=== PATIENT | female | born 1990 | race Caucasian/White ===

== ENCOUNTER 2017-08-16 17:38 | Inpatient (IN) | payer OTHER ==
[~2017-08-16] VITALS: Ht 157.5 cm; Wt 68.7 kg
[2017-08-16 17:43] VITALS: BP 132/71; PULSE 84; RESP 20; TEMP 98.7; O2SAT 100
--- NOTE | 2017-08-16 17:59 | PD ---
HPI Chief Complaint: Psychiatric Symptoms Time Seen by Provider: 17:58 Travel History International Travel<30 days: No Contact w/Intl Traveler<30days: No Traveled to known affect area: No History of Present Illness HPI 26-year-old female presents emergency department with her family with reports of suicidal ideation, with a specific plan. Patient states she suffered from depression and thoughts of suicide since she was 12 years old. Patient states she has a psychiatrist, but was unable to make that appointment due to recent bronchitis illness. She was recently given azithromycin for bronchitis yesterday by her primary. Patient states in the last 2 days she has had worsening suicidal ideation with thoughts of either using a gun or running her car into a pole. Patient denies other significant acute medical issues other than the bronchitis which she is being treated for. She denies . She has no children. 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 She has no significant pain. She is currently voluntary with family. She has no known drug allergies. PFSH Past Medical History ?: Not Social History Alcohol Use: No Tobacco Use: No Substance Use: No Allergies-Medications (Allergen,Severity, Reaction): Coded Allergies: No Known Allergies (Unverified , 08/16/17) Review of Systems Except as stated in HPI: all other systems reviewed are Neg General / Constitutional: No: Fever Eyes: No: Visual changes HENT: No: Headaches Cardiovascular: No: Chest Pain or Discomfort Respiratory: No: Shortness of Breath Gastrointestinal: No: Abdominal Pain Genitourinary: No: Dysuria Musculoskeletal: No: Pain Skin: No Rash Neurologic: No: Weakness Psychiatric: Positive: Anxiety, Depression, Suicidal Ideations, No: Substance Abuse, Homicidal Ideation Endocrine: No: Polydipsia Hematologic/Lymphatic: No: Easy Bruising Physical Exam Narrative GENERAL: Patient appears sad and somewhat anxious but otherwise in no acute distress. SKIN: Warm and dry. Normal color. Normal turgor. No signs of trauma. No cutting HEAD: Atraumatic. Normocephalic. EYES: Pupils equal and round. No scleral icterus. No injection or drainage. ENT: No nasal bleeding or discharge. Mucous membranes pink and moist. Pharynx is clear. Airways patent NECK: Trachea midline. Supple nontender. CARDIOVASCULAR: Regular rate and rhythm. RESPIRATORY: No accessory muscle use. Clear to auscultation. Breath sounds equal bilaterally. GASTROINTESTINAL: Abdomen soft, non-tender, nondistended. Hepatic and splenic margins not palpable. MUSCULOSKELETAL: Extremities without clubbing, cyanosis, or edema. No obvious deformities. NEUROLOGICAL: Awake and alert. No obvious cranial nerve deficits. Motor grossly within normal limits. Five out of 5 muscle strength in the arms and legs. Normal speech. PSYCHIATRIC: Appropriate mood and affect; insight and judgment normal. Patient admits to active suicidal ideation. Data Data Last Documented VS Vital Signs Date Time Temp Pulse Resp B/P (MAP) Pulse Ox O2 Delivery O2 Flow Rate FiO2 08/16/17 17:43 98.7 84 20 132/71 (91) 100 Orders Orders Complete Blood Count With Diff (08/16/17 18:07) Comprehensive Metabolic Panel (08/16/17 18:07) Thyroid Stimulating Hormone (08/16/17 18:07) Urinalysis - C+S If Indicated (08/16/17 18:07) Ed Urine Pregnancytest Poc (08/16/17 18:07) Psych Screen (08/16/17 18:07) Drug Screen, Random Urine (08/16/17 18:07) Alcohol (Ethanol) (08/16/17 18:07) MDM Medical Decision Making Medical Screen Exam Complete: Yes Emergency Medical Condition: Yes Differential Diagnosis Anxiety. Depression. Suicidal ideation. Narrative Course Psychiatric labs ordered per protocol. Psych screen is ordered. I informed the patient that she is currently voluntary but if she attempted to leave, she would be mcege acted. Patient is medically cleared for psychiatric evaluation. Condition: Stable Eloy Lobo Aug 16, 2017 17:59
[2017-08-16] MEDS ORDERED: CLON0.5T PO (18:15)
[2017-08-16] MEDS ORDERED: VENL37.5 PO (18:15)
[2017-08-16 18:47] LABS: AUTOMATED NEUTROPHIL # 1.6 TH/MM3 (1.8-7.7); BACTERIA, URINE OCC /hpf; BASOPHIL % 0.7 % (0.0-2.0); BILIRUBIN, URINE NEG (NEG); BLOOD, URINE NEG (NEG); EOSINOPHIL # 0.1 TH/MM3 (0-0.4); EOSINOPHIL % 1.7 % (0.0-4.0); GLUCOSE,URINE NEG (NEG); HEMATOCRIT 36.6 % (35.0-46.0); HEMOGLOBIN 12.3 GM/DL (11.6-15.3); KETONE, URINE NEG (NEG); LYMPH % 59.4 % (9.0-44.0); LYMPHOCYTE # 3.5 TH/MM3 (1.0-4.8); MEAN CELL VOLUME 80.8 FL (80.0-100.0); MEAN CORPUSCULAR HEMOGLOBIN 27.1 PG (27.0-34.0); MEAN CORPUSCULAR HGB CONC 33.5 % (32.0-36.0); MEAN PLATELET VOLUME 7.8 FL (7.0-11.0); MONO % 11.7 % (0.0-8.0); MONOCYTE # 0.7 TH/MM3 (0-0.9); NEUT % 26.5 % (16.0-70.0); NITRITE,URINE NEG (NEG); PH, URINE 6.5 (5.0-8.5); PLATELET COUNT 227 TH/MM3 (150-450); RED BLOOD COUNT 4.53 MIL/MM3 (4.00-5.30); RED CELL DISTRIBUTION WIDTH 13.3 % (11.6-17.2); SQUAMOUS EPITHELIAL CELL URINE 1 /hpf (0-5); URINE COLOR COLORLESS (YELLW/STRAW); URINE LEUKOCYTE ESTERASE NEG (NEG); WHITE BLOOD COUNT 5.9 TH/MM3 (4.0-11.0)
[2017-08-16 18:58] LABS: ALT (GPT) 99 U/L (10-53)
[2017-08-16 18:59] LABS: ALBUMIN 3.1 GM/DL (3.4-5.0); AST (GOT) 73 U/L (15-37); BICARBONATE 25.3 MEQ/L (21.0-32.0); BLOOD UREA NITROGEN 3 MG/DL (7-18); CALCIUM 8.4 MG/DL (8.5-10.1); CHLORIDE 111 MEQ/L (98-107); CREATININE 0.69 MG/DL (0.50-1.00); GLOMERULAR FILTRATION RATE 103 ML/MIN (>89); GLUCOSE,RANDOM 88 MG/DL (74-106); SODIUM (NA) 142 MEQ/L (136-145)
[2017-08-16 19:08] LABS: ALKALINE PHOSPHATASE 78 U/L (45-117); TOTAL BILIRUBIN ADULT 0.2 MG/DL (0.2-1.0); TOTAL PROTEIN 7.1 GM/DL (6.4-8.2)
[2017-08-16 19:23] LABS: BANDS 6 % (0-6); BASOPHILS 1 % (0-2); LYMPHOCYTES 45 % (9-44); MONOCYTES 14 % (0-8); NEUTROPHIL # MANUAL DIFF 2.2 TH/MM3 (1.8-7.7); PLASMA CELLS 1 % (0-0); POLYS (SEG NEUTROPHILS) 31 % (16-70)
[2017-08-16 22:00] VITALS: BP 126/78; PULSE 78; RESP 16; O2SAT 100
[2017-08-16] MEDS ORDERED: LORazepam 1 MG TAB PO ONE (22:30)
[2017-08-16] MEDS ORDERED: MAGNESIUM HYDROXIDE SUSP 30 ML CUP PO PRN (23:45)
[2017-08-16] MEDS ORDERED: NICOTINE 21 MG/24 HR PATCH T-DERMAL PRN (23:45)
[2017-08-16] MEDS ORDERED: ALUMINUM/MAGNESIUM/SIMETH 30 ML CUP PO PRN (23:45)
[2017-08-16] MEDS ORDERED: ACETAMINOPHEN 325 MG TAB PO PRN (23:45)
[2017-08-17 00:45] VITALS: BP 117/68; PULSE 80; RESP 16; TEMP 97.9; O2SAT 99
[2017-08-17 05:20] VITALS: BP 119/64; PULSE 76; RESP 18; TEMP 98.4
[2017-08-17 08:16] LABS: ALBUMIN 2.8 GM/DL (3.4-5.0); ALT (GPT) 88 U/L (10-53); AST (GOT) 59 U/L (15-37); BLOOD UREA NITROGEN 7 MG/DL (7-18); CALCIUM 7.8 MG/DL (8.5-10.1); CHLORIDE 110 MEQ/L (98-107); CHOLESTEROL 117 MG/DL (120-200); CREATININE 0.65 MG/DL (0.50-1.00); GLOMERULAR FILTRATION RATE 110 ML/MIN (>89); GLUCOSE,RANDOM 93 MG/DL (74-106); SODIUM (NA) 145 MEQ/L (136-145); TRIGLYCERIDES 121 MG/DL (42-150)
[2017-08-17 08:17] LABS: ALKALINE PHOSPHATASE 69 U/L (45-117); CHOLESTEROL/ HDL RATIO 4.93 RATIO; HDL CHOLESTEROL 23.7 MG/DL (40.0-60.0); LDL CHOLESTEROL 69 MG/DL (0-99); TOTAL BILIRUBIN ADULT 0.2 MG/DL (0.2-1.0); TOTAL PROTEIN 6.5 GM/DL (6.4-8.2)
--- NOTE | 2017-08-17 11:58 | HHI.HP ---
Provisional Diagnosis Admission Date Aug 16, 2017 at 23:45 [place] I. 1. Adjustment disorder with depressed mood [place] II. Deferred Certification of Person's Competence To Provide Express and Informed Consent I have personally examined Katrina Townsend , a person being served at [facility] on, Aug 17, 2017 11:47. Express and informed consent means consent voluntarily given in writing, by a competent person, after sufficient explanation and disclosure of the subject matter involved to enable the person to make a knowing and willful decision without any element of force, fraud, deceit, duress, or other form of constraint or coercion. This person is 18 years of age or older, is not now known to be incompetent to consent to treatment with a guardian advocate, and does not have a health care surrogate or proxy currently making medical treatment decisions. I have found this person to be one of the following: [x] Competent to provide express and informed consent, as defined above, for voluntary admission to this facility and is competent to provide express and informed consent for treatment. He/she has the consistent capacity to make well reasoned, willful, and knowing decisions concerning his or her medical or mental health treatment. The person fully and consistently understands the purpose of the admission for examination/placement and is fully capable of personally exercising all rights [place] Incompetent to provide express and informed consent to voluntary admission, and this is incompetent to provide express and informed consent to treatment. The person must be transferred to involuntary status and a petition for a guardian advocate filed with the Circuit Court. [] Refusing to provide express and informed consent to voluntary admission but is competent to provide express and informed consent for treatment. The person must be discharged or transferred to involuntary status. Form shall be completed within 24 hours of a person's arrival at the receiving facility and filed in the clinical record of each person: 1. Admitted on a voluntary basis 2. Permitted to provide express and informed consent to his/her own treatment 3. Allowed to transfer from involuntary to voluntary status 4. Prior to permitting a person to consent to his or her own treatment after having been previously found incompetent to consent to treatment. History of Present Illness Capacity: Has Capacity Psych Chief Complaint: Depression HPI Ms. Townsend is a 26-year-old female with a reported history of generalized anxiety disorder and depression who presents voluntarily for psychiatric evaluation. Patient told the ED provider "in the last 2 days she has had worsening suicidal ideation with thoughts of either using a gun or running her car into a pole." Reviewing the electronic medical record, it appears this is patient's first visit to [place]. Patient seen and examined with nurse and counselor. Chart reviewed. Case discussed with nursing staff. No behavioral issues noted overnight. No evidence of suicidality or homicidality while the patient has been under observation on the inpatient unit. Case discussed with counselor who has obtained collateral information from the patient's . reportedly has no safety concerns about the patient returning home today, and counselor confirms that firearm has been secured. On my examination today, the patient reports that she is feeling back to her normal self and is requesting discharge from the inpatient psychiatric unit today. She says that she has been feeling somewhat more depressed over the last 3 months secondary to marital stress and she also notes that she has not been taking her Effexor for the last week or so secondary to respiratory illness. She reports that she had some thoughts of self-harm in the last few days with plan as noted above, but this has resolved. She denies any suicidal or homicidal ideation, intent or plan on direct questioning and contracts for safety. Mood is improved versus initial presentation, and I can elicit no depressive or hypomanic/manic symptoms at this time. She does report some generalized anxiety symptoms including poor sleep and muscle tension. She denies any audiovisual hallucinations. I can elicit no delusional beliefs. The remainder of the psychiatric ROS is negative. No acute physical complaints. Past psychiatric history: The patient reports a history of generalized anxiety disorder and depression. She follows with an outpatient provider by the name of Poornima at [facility]. She also has a therapist whom she sees approximately weekly. She denies a history of psychiatric admissions or suicide attempts. Family history: The patient reports anxiety and depression run in her family. Her mother had a history of opiate use issues. She denies a family history of suicide. Chemical dependency history: The patient denies any abuse of drugs or alcohol. Social history: The patient lives with her . She has no children. She does have pets. She is high school educated and has 1 year of college. 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 She denies any history. Denies any legal history. She is a [employer]. She does report that her has a gun, but this has been secured as noted above. She denies a history of abuse but reports that she experienced her parents divorce and has been seizure disorder as traumatic. She does not report any PTSD symptoms at this time besides perhaps some mild hyperarousal. Review of Systems Except as stated in HPI: all other systems reviewed are Neg Past Family Social History Coded Allergies: No Known Allergies (Unverified , 08/16/17) Past Medical History Includes a history of syringomyelia. Reported Medications Venlafaxine (Effexor) 37.5 Mg Tab, 37.5 MG PO Q12H, #60 TAB 0 Refills 08/16/17 Clonazepam (Clonazepam) 0.5 Mg Tab, 0.5 MG PO HS Y for ANXIETY, #60 TAB 0 Refills 08/16/17 Current Medications Medications (Trade) Dose Ordered Sig/Sy Route Start Time Stop Time Status Last Admin (Tylenol) 650 mg Q4H PRN PO 08/16/17 23:45 (Milk Of Magnesia Liq) 30 ml DAILY PRN PO 08/16/17 23:45 (Mag-Al Plus Susp Liq) 30 ml Q6H PRN PO 08/16/17 23:45 (Habitrol 21 Mg Patch.24 Hr) 1 patch DAILY PRN T-DERMAL 08/16/17 23:45 Patient's Strengths (min. 2) Attending to basic needs. Verbally fluent. Physical Exam Physical exam completed by ED provider. On my examination today, the patient appears to be in no acute physical distress. No motor abnormalities noted. Labs and vitals reviewed: Vital Signs Vital Signs Date Time Temp Pulse Resp B/P (MAP) Pulse Ox O2 Delivery O2 Flow Rate FiO2 08/17/17 05:20 98.4 76 18 119/64 (82) 08/17/17 00:45 99 08/16/17 22:00 Room Air Lab Results Test 08/16/17 18:25 08/17/17 07:23 White Blood Count 5.9 TH/MM3 Red Blood Count 4.53 MIL/MM3 Hemoglobin 12.3 GM/DL Hematocrit 36.6 % Mean Corpuscular Volume 80.8 FL Mean Corpuscular Hemoglobin 27.1 PG Mean Corpuscular Hemoglobin Concent 33.5 % Red Cell Distribution Width 13.3 % Platelet Count 227 TH/MM3 Mean Platelet Volume 7.8 FL Neutrophils (%) (Auto) 26.5 % Lymphocytes (%) (Auto) 59.4 % Monocytes (%) (Auto) 11.7 % Eosinophils (%) (Auto) 1.7 % Basophils (%) (Auto) 0.7 % Neutrophils # (Auto) 1.6 TH/MM3 Lymphocytes # (Auto) 3.5 TH/MM3 Monocytes # (Auto) 0.7 TH/MM3 Eosinophils # (Auto) 0.1 TH/MM3 Basophils # (Auto) 0.0 TH/MM3 CBC Comment AUTO DIFF Differential Total Cells Counted 100 Neutrophils % (Manual) 31 % Band Neutrophils % 6 % Lymphocytes % 45 % Monocytes % 14 % Eosinophils % 2 % Basophils % 1 % Neutrophils # (Manual) 2.2 TH/MM3 Differential Comment FINAL DIFF MANUAL Atypical Lymphocytes % Plasma Cells 1 % Platelet Estimate NORMAL Platelet Morphology Comment NORMAL Urine Color COLORLESS Urine Turbidity CLEAR Urine pH 6.5 Urine Specific [place] 1.001 Urine Protein NEG mg/dL Urine Glucose (UA) NEG mg/dL Urine Ketones NEG mg/dL Urine Occult Blood NEG Urine Nitrite NEG Urine Bilirubin NEG Urine Urobilinogen LESS THAN 2.0 MG/DL Urine Leukocyte Esterase NEG Urine WBC LESS THAN 1 /hpf Urine Squamous Epithelial Cells 1 /hpf Urine Bacteria OCC /hpf Microscopic Urinalysis Comment CULT NOT INDICATED Blood Urea Nitrogen 3 MG/DL 7 MG/DL Creatinine 0.69 MG/DL 0.65 MG/DL Random Glucose 88 MG/DL 93 MG/DL Total Protein 7.1 GM/DL 6.5 GM/DL Albumin 3.1 GM/DL 2.8 GM/DL Calcium Level 8.4 MG/DL 7.8 MG/DL Alkaline Phosphatase 78 U/L 69 U/L Aspartate Amino Transf (AST/SGOT) 73 U/L 59 U/L Alanine Aminotransferase (ALT/SGPT) 99 U/L 88 U/L Total Bilirubin 0.2 MG/DL 0.2 MG/DL Sodium Level 142 MEQ/L 145 MEQ/L Potassium Level 3.5 MEQ/L 3.6 MEQ/L Chloride Level 111 MEQ/L 110 MEQ/L Carbon Dioxide Level 25.3 MEQ/L 28.0 MEQ/L Anion Gap 6 MEQ/L 7 MEQ/L Estimat Glomerular Filtration Rate 103 ML/MIN 110 ML/MIN Thyroid Stimulating Hormone 3rd Gen 0.931 uIU/ML Urine Opiates Screen NEG Urine Barbiturates Screen NEG Urine Amphetamines Screen NEG Urine Benzodiazepines Screen NEG Urine Cocaine Screen NEG Urine Cannabinoids Screen NEG Ethyl Alcohol Level LESS THAN 3 MG/DL Triglycerides Level 121 MG/DL Cholesterol Level 117 MG/DL LDL Cholesterol 69 MG/DL HDL Cholesterol 23.7 MG/DL Cholesterol/HDL Ratio 4.93 RATIO Mental Status Examination Appearance: Appropriate Consciousness: Alert Orientation: x4 Motor Activity: Normal gait Speech: Unremarkable Language: Adequate Fund of Knowledge: Adequate Attention and Concentration: Adequate Memory: Unremarkable (Grossly intact on clinical exam) Mood: Appropriate Affect: Appropriate Thought Process & Associations: Intact, Logical, Goal directed, Linear Thought Content: Appropriate Hallucination Type: None Delusion Type: None Suicidal Ideation: No Suicidal Plan: No Suicidal Intention: No Homicidal Ideation: No Homicidal Plan: No Homicidal Intention: No Mental Status Exam Remarks Insight and judgment are fair Assessment & Plan Problem List: (1) Adjustment disorder with depressed mood ICD Codes: F43.21 - Adjustment disorder with depressed mood Assessment & Plan 26-year-old female with psychiatric history as detailed above who is presently voluntarily admitted to the inpatient psychiatric unit. On my examination today , the patient denies suicidal or homicidal ideation. She contracts for safety. She is agreeable to following up with outpatient provider. She reports resolution of presenting dysphoria and associated suicidal ideation. There is no evidence of self-care deficit. There has been no evidence of behavioral disturbance while the patient has been under observation. Counselor has obtained reassuring collateral from patient's . Synthesizing this information and based on the available evidence, I cabinet worker that the patient does not presently meet criteria for involuntary psychiatric hospitalization. She is requesting discharge from the inpatient psychiatric unit today, and I have no basis to retain her over her objection. I have strongly recommended that she remain over the weekend for observation, but she has declined. Having no basis to retain her on the unit, I will discharge her home today AGAINST MEDICAL ADVICE. I have explained to the patient that she is leaving AGAINST MEDICAL ADVICE. I have recommended that she resume her Effexor and follow up with outpatient provider next week. I have counseled the patient regarding warning signs for need to return to the psychiatric emergency room as part of a general safety plan. I have provided no prescriptions on discharge. This note serves also as my discharge summary. Request HC Surrog/Guard Advoc?: No Orville Jackson MD Aug 17, 2017 11:58
[2017-08-17 16:16] LABS: HEMOGLOBIN A1C 5.3 % (4.3-6.0)
== END 2017-08-17 15:50 | disposition left against medical advice (07) | DRG 881 ==
LOC: NEPD 17:38 → UNDOADMIN 23:45 → NEDA 23:45 → H260 08-17 00:45
PROVIDERS: ADMIT Psychiatry & Neurology Psychiatry; ATTEND Psychiatry & Neurology Psychiatry
DX: F43.21 Adjustment disorder with depressed mood (principal); R45.851 Suicidal ideations; Z91.128 Patient's intentional underdosing of medication regimen for other reason; T43.216A Underdosing of selective serotonin and norepinephrine reuptake inhibitors, initial encounter; F41.1 Generalized anxiety disorder; Z81.8 Family history of other mental and behavioral disorders
CPT/HCPCS: 80053; 80061; 80307; 81001; 83036; 84443; 84703; 85007; 85027; 99285